=== PATIENT | male | born 1945 | race Caucasian/White ===

== ENCOUNTER 2021-07-20 16:04 | Inpatient (IN) | payer MEDICAID, MEDICARE ==
[2021-07-20 19:24] VITALS: BMI 25.1
[2021-07-20] MEDS ORDERED: Acetaminophen 500 MG TAB PO PRN (19:44)
[2021-07-20] MEDS ORDERED: Dextrose 5% in Water 1,000 ML IV PRN (19:45)
[2021-07-20] MEDS ORDERED: HumaLOG 300 UNITS/3 ML VIAL SC PRN (19:45)
[2021-07-20] MEDS ORDERED: Dextrose 50% Abboject 50 ML SYRINGE IVP PRN (19:45)
[2021-07-20] MEDS: Gabapentin 300 MG CAP PO SCH (20:43)
[2021-07-20] MEDS: Metoprolol Tartrate 50 MG TAB PO SCH (20:44)
[2021-07-20] MEDS: NIFEdipine XL 30 MG TAB PO SCH (20:44)
[2021-07-20] MEDS: Atorvastatin Calcium 40 MG TAB PO SCH (20:44)
[2021-07-20] MEDS: Apixaban 5 MG TAB PO SCH (20:45)
[2021-07-21 06:23] LABS: #Basophils 0.1 thou/uL (0.0-0.2); #Eosinphils 0.3 thou/uL (0.0-0.7); #Lymphocytes 1.7 thou/uL (1.20-3.40); #Monocytes 0.7 thou/uL (0.11-0.59); #Neutrophils 5.5 thou/uL (1.40-6.50); %Basophils 1.1 % (0.0-1.0); %Eosinophils 3.2 % (0.0-10.0); %Lymphocytes 20.1 % (21.0-51.0); %Monocytes 8.8 % (0.0-10.0); %Neutrophils 66.8 % (42.0-75.0); Hemoglobin 12.3 g/dL (14.0-18.0); Mean Corpuscular HGB CONC 33.3 g/dL (32.0-36.0); Mean Corpuscular Hemoglobin 29.9 pg (27.0-31.0); Mean Corpuscular Volume 89.8 fL (78.0-98.0); Mean Platelet Volume 5.7 fL (7.4-10.4); Platelet Count 439 thou/uL (130-400); RBC Distribution Width 12.8 % (11.5-14.5); Red Blood Cell (RBC) Count 4.12 mill/uL (4.70-6.10); White Blood Cell (WBC) Count 8.3 thou/uL (4.8-10.8)
[2021-07-21 06:32] LABS: ALT (SGPT) 15 U/L (8-55); AST (SGOT) 19 U/L (5-34); Alkaline Phosphatase 86 U/L (40-110); Anion Gap 11 mmol/L (10-20); BUN (Urea Nitrogen) 10 mg/dL (8.4-25.7); Bilirubin, Total 0.7 mg/dL (0.2-1.2); Calc. Creatinine Clearance 77 mL/min (70-130); Carbon Dioxide 36 mmol/L (23-31); Chloride 98 mmol/L (98-107); Globulin 3.4 g/dL (2.4-3.5); Glucose 148 mg/dL (83-110); Potassium 4.3 mmol/L (3.5-5.1); Protein, Total 6.4 g/dL (5.8-8.1); Sodium 141 mmol/L (136-145)
[2021-07-21 07:01] LABS: Bilirubin Negative (Negative); Blood, Urine Large (Negative); Clarity Slightly Cloudy (Clear); Glucose, Urine (Dipstick) Negative (Negative); Ketone, Urine Negative (Negative); Leukocyte Trace (Negative); Nitrite Negative (Negative); Protein, Urine (Dipstick) 100 mg/dL (Neg-Trace); Urobilinogen 0.2 mg/dL (Less than 2)
[2021-07-21 07:08] LABS: RBC/HPF Greater than 50 HPF (0-3)
[2021-07-21 07:09] LABS: Bacteria/HPF Rare-Few HPF (None Seen); Squamous Epithelial 0-3 HPF (0-3)
[2021-07-21] MEDS: Lantus 1000 UNITS/10 ML VIAL SC SCH (08:24)
[2021-07-21] MEDS: Gabapentin 300 MG CAP PO SCH ×4 (08:25→21:19)
[2021-07-21] MEDS: Aspirin 81 mg Enteric Coated Tablet PO SCH (08:25)
[2021-07-21] MEDS: Metoprolol Tartrate 50 MG TAB PO SCH ×2 (08:25→21:19)
[2021-07-21] MEDS: Tamsulosin HCl 0.4 MG CAP PO SCH (08:25)
[2021-07-21] MEDS: Lisinopril 10 MG TAB PO SCH (08:25)
[2021-07-21] MEDS: Apixaban 5 MG TAB PO SCH ×2 (08:26→21:19)
[2021-07-21] MEDS: HumaLOG 300 UNITS/3 ML VIAL SC PRN ×2 (12:02→17:45)
[2021-07-21] MEDS ORDERED: Albuterol Sulfate 2.5 mg/3 ml Neb NEB PRN (12:57)
[2021-07-21] MEDS: Mometasone/Formoterol 60 PUFF AER INH SCH (17:56)
[2021-07-21] MEDS: NIFEdipine XL 30 MG TAB PO SCH (21:19)
[2021-07-21] MEDS: Atorvastatin Calcium 40 MG TAB PO SCH (21:19)
[2021-07-22] MEDS: Mometasone/Formoterol 60 PUFF AER INH SCH (06:13)
[2021-07-22 07:44] VITALS: BP 123/75; TEMP 98.5
[2021-07-22] MEDS: Aspirin 81 mg Enteric Coated Tablet PO SCH (08:37)
[2021-07-22] MEDS: Apixaban 5 MG TAB PO SCH (08:37)
[2021-07-22] MEDS: Lisinopril 10 MG TAB PO SCH (08:37)
[2021-07-22] MEDS: Metoprolol Tartrate 50 MG TAB PO SCH (08:37)
[2021-07-22] MEDS: Tamsulosin HCl 0.4 MG CAP PO SCH (08:37)
[2021-07-22] MEDS: Lantus 1000 UNITS/10 ML VIAL SC SCH (08:39)
[2021-07-22] MEDS: Gabapentin 300 MG CAP PO SCH ×2 (08:43→14:07)
[2021-07-22] MEDS: HumaLOG 300 UNITS/3 ML VIAL SC PRN (11:44)
== END 2021-07-22 15:50 | disposition short-term general hospital (02) | DRG 308 ==
LOC: NAV ACUTE 17:55
PROVIDERS: ADMIT Internal Medicine; ATTEND Internal Medicine
DX: I48.92 Unspecified atrial flutter (principal); J96.01 Acute respiratory failure with hypoxia; N20.1 Calculus of ureter; I10 Essential (primary) hypertension; E78.5 Hyperlipidemia, unspecified; J44.9 Chronic obstructive pulmonary disease, unspecified; N40.1 Benign prostatic hyperplasia with lower urinary tract symptoms; R33.8 Other retention of urine; D64.9 Anemia, unspecified; F41.9 Anxiety disorder, unspecified; E11.42 Type 2 diabetes mellitus with diabetic polyneuropathy; Z90.49 Acquired absence of other specified parts of digestive tract; Z86.16 Personal history of COVID-19; Z87.891 Personal history of nicotine dependence; Z79.01 Long term (current) use of anticoagulants; Z79.4 Long term (current) use of insulin; Z79.899 Other long term (current) drug therapy
CPT/HCPCS: 36416; 80053; 81003; 81015; 85025; 87086; 36415-59; J1815